=== PATIENT | female | born 1950 | race Caucasian/White ===

== ENCOUNTER 2019-11-24 11:13 | Emergency (ER) | payer OTHER ==
[~2019-11-24] VITALS: Ht 157.5 cm; Wt 89.8 kg
[~2019-11-24 11:13] MED LIST: IBUPROFEN 600600 M1 PO; LOPRESSOR25; NORCO 5-325 TA1 EACH PO; PAXIL 20 MG TAB20 M1; PRILOSEC 20 MG20 MG
[2019-11-24] MEDS ORDERED: DOXYCYCLINE 10100 MG PO (11:58)
[2019-11-24] MEDS ORDERED: VISTARIL 25 MG25 M1 PO (12:01)
[2019-11-24] MEDS ORDERED: XANAX 0.5 MG0.5 MG PO ×2 (12:01→12:08)
[2019-11-24 12:11] VITALS: BP 128/48
== END 2019-11-24 12:13 | disposition home or self-care (01) ==
LOC: M.ERS 11:13
DX: H73.892 Other specified disorders of tympanic membrane, left ear (principal); I10 Essential (primary) hypertension; K21.9 Gastro-esophageal reflux disease without esophagitis; F41.9 Anxiety disorder, unspecified; F32.9 Major depressive disorder, single episode, unspecified; Z90.49 Acquired absence of other specified parts of digestive tract; Z88.0 Allergy status to penicillin; Z88.1 Allergy status to other antibiotic agents